=== PATIENT | female | born 1935 | race African-American/Black ===

== ENCOUNTER 2018-03-05 20:27 | Inpatient (IN) ==
[2018-03-05] MEDS ORDERED: SODIUM CHLORIDE 0.9% 500 ML IV STA (21:03)
[2018-03-05 22:44] LABS: Basophils % 0.3 % (0.0-0.8); Eosinophils # 0.1 10*3/uL (0.0-0.87); Eosinophils % 2.1 % (0.00-10.9); Hematocrit 47.1 VOL% (35.7-47.0); Immature Granulocytes % 0.3 %; Immature Granulocytes Absolute 0.02 #; Lymphocytes # 1.6 10*3/uL (1.4-4.0); Lymphocytes % 25.5 % (21.3-54.2); Mean Corpuscular HGB Conc 31.8 GM/DL (32-36); Mean Corpuscular Hemoglobin 30 PG (27-34); Mean Corpuscular Volume 92.5 FL (87-102); Mean Platelet Volume 12.8 FL (9.6-12.0); Monocytes # 0.6 10*3/uL (0.11-0.8); Monocytes % 9.5 % (1.7-12.7); Neutrophils # 3.8 10*3/uL (1.4-7.4); Neutrophils % 62.3 % (38.7-73.9); Platelet Count 176 T/CUMM (130-400); Red Blood Count 5.09 MC/CUMM (3.8-5.5); Red Cell Distribution Width 13.8 % (9.3-17.3); White Blood Count 6.1 T/CUMM (4-12)
[2018-03-05 22:58] LABS: Ammonia < 10 UMOL/L (11-32)
[2018-03-05 22:59] LABS: PT Patient Result 10.3 SECS
[2018-03-05 23:09] LABS: Lactic Acid 1.3 MMOL/L (0.4-2.0)
[2018-03-05 23:11] LABS: Alanine Aminotransferase 33 U/L (13-56); Albumin 3.6 G/DL (3.4-5.0); Alkaline Phosphatase 166 U/L (45-117); Aspartate Amino Transferase 17 U/L (0-37); Blood Urea Nitrogen 44 MG/DL (7-18); Calcium 9.4 MG/DL (8.5-10.1); Glucose 142 MG/DL (74-106); Osmolality,Calculated 295.1 MOS/KG (273-304); Sodium 142 MMOL/L (136-145); Total Protein 8.4 G/DL (6.4-8.3)
[2018-03-06 00:36] LABS: Sedimentation Rate-Westergren 34 MM/HR (0-30)
[2018-03-06 01:23] LABS: Apearance,Urine CLOUDY (Clear); Bilirubin,Urine Negative (Negative); Blood, Urine Large mg/dL (Negative); Glucose,Urine (UA) Negative (Negative); Ketones,Urine Negative (Negative); Nitrite,Urine Negative (Negative); Protein,Urine 30 MG/DL; RBC,Urine 27 /HPF (0-4); Urine Color Yellow (Yellow); Urine Specific Gravity 1.008 (1.001-1.035); Urine Urobilinogen < 2.0 EU/DL (0.2-1.0); WBC,Urine 498 /HPF (0-6)
[2018-03-06] MEDS ORDERED: cefTRIAXone 1,000 MG in SODIUM CHLORIDE 0.9% 100 ML IV STA (01:26)
[2018-03-06 01:27] LABS: Barbiturates Screen,Urine Negative (Negative); Benzodiazepines Screen,Urine Negative (Negative); Cannabinoid Screen,Urine Negative (Negative); Opiate Screen,Urine Negative (Negative); Phencyclidine Screen,Urine Negative (Negative)
[2018-03-06] MEDS ORDERED: ACETAMINOPHEN 325 MG TABLET PO PRN (02:53)
[2018-03-06] MEDS ORDERED: GLUCAGON 1 MG VIAL IM PRN (02:53)
[2018-03-06] MEDS ORDERED: ONDANSETRON 4 MG/2 ML VIAL IV PRN (02:53)
[2018-03-06] MEDS ORDERED: DEXTROSE 50% 25 GM/50 ML VIAL IV PRN (02:53)
[2018-03-06] MEDS ORDERED: DOCUSATE SODIUM 100 MG CAPSULE PO PRN (02:53)
[2018-03-06] MEDS ORDERED: BISACODYL 5 MG TABLET PO PRN (02:53)
[2018-03-06] MEDS: SODIUM CHLORIDE 0.9% 1,000 ML IV SCH ×2 (04:00→13:05)
[2018-03-06 06:12] LABS: Basophils % 0.4 % (0.0-0.8); Eosinophils # 0.2 10*3/uL (0.0-0.87); Eosinophils % 2.3 % (0.00-10.9); Hematocrit 42.6 VOL% (35.7-47.0); Hemoglobin 13.6 GM/DL (12.0-16.0); Immature Granulocytes % 0.4 %; Immature Granulocytes Absolute 0.03 #; Lymphocytes # 2.4 10*3/uL (1.4-4.0); Lymphocytes % 35.8 % (21.3-54.2); Mean Corpuscular HGB Conc 31.9 GM/DL (32-36); Mean Corpuscular Hemoglobin 30 PG (27-34); Mean Corpuscular Volume 92.6 FL (87-102); Mean Platelet Volume 12.7 FL (9.6-12.0); Monocytes # 1.1 10*3/uL (0.11-0.8); Monocytes % 15.7 % (1.7-12.7); Neutrophils # 3.1 10*3/uL (1.4-7.4); Neutrophils % 45.4 % (38.7-73.9); Platelet Count 162 T/CUMM (130-400); Red Cell Distribution Width 14.1 % (9.3-17.3); White Blood Count 6.8 T/CUMM (4-12)
[2018-03-06 06:32] LABS: Calcium 9.4 MG/DL (8.5-10.1); Osmolality,Calculated 296.8 MOS/KG (273-304)
[2018-03-06 06:36] LABS: Eosinophils 2 % (0-10); Hypochromasia 1+; Lymphocytes 37 % (20-55); Ovalocytes Slight; Platelet Estimate Adequate; Segmented Neutrophils 50 % (50-85); Total Cells Counted 100
[2018-03-06] MEDS: INSULIN LISPRO 100 UNIT/ML SUBCUT SCH ×4 (08:15→22:02)
[2018-03-06] MEDS: PANTOPRAZOLE 40 MG TABLET PO SCH (09:24)
[2018-03-06] MEDS: levETIRAcetam 500 MG TABLET PO SCH ×2 (09:24→21:07)
[2018-03-06] MEDS: LOSARTAN 50 MG TABLET PO SCH (09:24)
[2018-03-06] MEDS: CARVEDILOL 12.5 MG TABLET PO SCH ×2 (09:25→21:08)
[2018-03-06] MEDS: DILTIAZEM CD 240 MG CAPSULE PO SCH (09:25)
[2018-03-06] MEDS: ENOXAPARIN 30 MG/0.3 ML SYRINGE SUBCUT SCH (09:29)
[2018-03-06] MEDS ORDERED: TUBERCULIN SKIN TEST 0.1 ML SYRINGE INTRADERM ONE (15:45)
[2018-03-06] MEDS: DESITIN 4OZ/NYSTATIN 15 GRAM MIXTURE PASTE TOP SCH ×2 (16:30→21:10)
[2018-03-06] MEDS: cloNIDine 0.1 MG TABLET PO SCH (21:08)
[2018-03-06] MEDS: INSULIN GLARGINE 100 UNIT/ML SUBCUT SCH (22:02)
[2018-03-07] MEDS: SODIUM CHLORIDE 0.9% 1,000 ML IV SCH ×2 (03:45→16:05)
[2018-03-07] MEDS: cefTRIAXone 1,000 MG in SYRINGE 1 EACH IV SCH (05:58)
[2018-03-07] MEDS: INSULIN LISPRO 100 UNIT/ML SUBCUT SCH ×4 (08:06→21:20)
[2018-03-07] MEDS: ENOXAPARIN 30 MG/0.3 ML SYRINGE SUBCUT SCH (09:13)
[2018-03-07] MEDS: CARVEDILOL 12.5 MG TABLET PO SCH ×2 (09:14→20:44)
[2018-03-07] MEDS: levETIRAcetam 500 MG TABLET PO SCH ×2 (09:14→20:44)
[2018-03-07] MEDS: CHOLECALCIFEROL 1,000 UNIT TABLET PO SCH (09:14)
[2018-03-07] MEDS: LOSARTAN 50 MG TABLET PO SCH (09:14)
[2018-03-07] MEDS: TERBINAFINE 250 MG TABLET PO SCH (09:14)
[2018-03-07] MEDS: DESITIN 4OZ/NYSTATIN 15 GRAM MIXTURE PASTE TOP SCH (09:14)
[2018-03-07] MEDS: PANTOPRAZOLE 40 MG TABLET PO SCH (09:14)
[2018-03-07] MEDS: DILTIAZEM CD 240 MG CAPSULE PO SCH (09:14)
[2018-03-07] MEDS ORDERED: ERGOCALCIFEROL 50,000 UNIT CAPSULE PO SCH (09:30)
[2018-03-07] MEDS: cloNIDine 0.1 MG TABLET PO SCH (20:44)
[2018-03-07] MEDS: INSULIN GLARGINE 100 UNIT/ML SUBCUT SCH (21:19)
[2018-03-07] MEDS ORDERED: QUEtiapine 25 MG TABLET PO PRN (23:16)
[2018-03-08] MEDS ORDERED: HALOPERIDOL 5 MG/ML AMP IV ONE (02:29)
[2018-03-08] MEDS: DESITIN 4OZ/NYSTATIN 15 GRAM MIXTURE PASTE TOP SCH ×2 (03:19→08:08)
[2018-03-08] MEDS: SODIUM CHLORIDE 0.9% 1,000 ML IV SCH ×2 (06:16→14:58)
[2018-03-08] MEDS: levETIRAcetam 500 MG TABLET PO SCH (08:07)
[2018-03-08] MEDS: CARVEDILOL 12.5 MG TABLET PO SCH (08:07)
[2018-03-08] MEDS: DILTIAZEM CD 240 MG CAPSULE PO SCH (08:07)
[2018-03-08] MEDS: INSULIN LISPRO 100 UNIT/ML SUBCUT SCH ×3 (08:08→15:34)
[2018-03-08] MEDS: TERBINAFINE 250 MG TABLET PO SCH (08:08)
[2018-03-08] MEDS: CHOLECALCIFEROL 1,000 UNIT TABLET PO SCH (08:08)
[2018-03-08] MEDS: LOSARTAN 50 MG TABLET PO SCH (08:08)
[2018-03-08] MEDS: ENOXAPARIN 30 MG/0.3 ML SYRINGE SUBCUT SCH (08:08)
[2018-03-08] MEDS: PANTOPRAZOLE 40 MG TABLET PO SCH (08:08)
[2018-03-08] MEDS: cefTRIAXone 1,000 MG in SYRINGE 1 EACH IV SCH (08:54)
[2018-03-08] MEDS ORDERED: LOSARTAN 25 MG TABLET PO SCH (09:00)
[2018-03-08] MEDS ORDERED: ZIPRASIDONE 20 MG/1 ML VIAL IM PRN (13:22)
[2018-03-08] MEDS ORDERED: HALOPERIDOL 5 MG/ML AMP IM ONE (15:28)
[2018-03-08] MEDS ORDERED: LORazepam 2 MG/1 ML VIAL IM ONE (15:29)
[2018-03-08 16:21] VITALS: BP 163/85
[2018-03-08] MEDS ORDERED: QUEtiapine 25 MG TABLET PO SCH (18:00)
[2018-03-08] MEDS ORDERED: MEMANTINE 5 MG TABLET PO SCH (21:00)
== END 2018-03-08 18:43 | DRG 690 ==
LOC: EDUNIT# → EDBD → N.ED 20:27 → N.EDINP 03-06 02:53 → N.2W 03-06 09:38 → N.5E 03-06 13:24
PROVIDERS: ADMIT Hospitalist; ATTEND Hospitalist

== ENCOUNTER 2018-04-06 16:24 | Inpatient (IN) ==
[2018-04-06 17:19] LABS: Basophils % 0.2 % (0.0-0.8); Eosinophils % 0.2 % (0.00-10.9); Hematocrit 34.2 VOL% (35.7-47.0); Immature Granulocytes % 0.7 %; Lymphocytes # 1.4 10*3/uL (1.4-4.0); Lymphocytes % 10.2 % (21.3-54.2); Mean Corpuscular HGB Conc 32.2 GM/DL (32-36); Mean Corpuscular Hemoglobin 30 PG (27-34); Mean Corpuscular Volume 91.7 FL (87-102); Mean Platelet Volume 11.6 FL (9.6-12.0); Monocytes # 1.6 10*3/uL (0.11-0.8); Monocytes % 11.7 % (1.7-12.7); Neutrophils # 10.5 10*3/uL (1.4-7.4); Platelet Count 173 T/CUMM (130-400); Red Blood Count 3.73 MC/CUMM (3.8-5.5); Red Cell Distribution Width 14.4 % (9.3-17.3); White Blood Count 13.6 T/CUMM (4-12)
[2018-04-06 17:26] LABS: Apearance,Urine CLOUDY (Clear); Bacteria,Urine Many /HPF (Few); Bilirubin,Urine Negative (Negative); Blood, Urine Moderate mg/dL (Negative); Glucose,Urine (UA) Negative (Negative); Ketones,Urine Negative (Negative); Mucus,Urine Occasional /LPF (Occasional); Nitrite,Urine Negative (Negative); Protein,Urine 30 MG/DL; RBC,Urine 114 /HPF (0-4); Urine Color Yellow (Yellow); Urine Specific Gravity 1.013 (1.001-1.035); Urine Urobilinogen < 2.0 EU/DL (0.2-1.0); WBC,Urine 632 /HPF (0-6)
[2018-04-06 17:36] LABS: Calcium 9.1 MG/DL (8.5-10.1); Osmolality,Calculated 291.3 MOS/KG (273-304); Potassium 5.1 MMOL/L (3.5-5.1)
[2018-04-06 17:39] LABS: Lactic Acid 1.3 MMOL/L (0.4-2.0)
[2018-04-06 17:46] LABS: Ammonia < 10 UMOL/L (11-32)
[2018-04-06] MEDS ORDERED: SODIUM CHLORIDE 0.9% 1,000 ML IV STA (17:54)
[2018-04-06] MEDS ORDERED: PIPERACILLIN/TAZOBACTAM 3,375 MG in SODIUM CHLORIDE 0.9% 100 ML IV STA (17:55)
[2018-04-06] MEDS ORDERED: VANCOMYCIN INJ 1,500 MG in SODIUM CHLORIDE 0.9% 500 ML IV STA (17:55)
[2018-04-06] MEDS ORDERED: FLUCONAZOLE INJ 400 MG in PREMIX 1 EACH IV SCH (18:00)
[2018-04-06] MEDS ORDERED: ONDANSETRON 4 MG/2 ML VIAL IV PRN (18:14)
[2018-04-06] MEDS ORDERED: ALBUTEROL 2.5 MG/3 ML NEB RESP TX PRN (18:14)
[2018-04-06] MEDS ORDERED: DEXTROSE 50% 25 GM/50 ML VIAL IV PRN (18:21)
[2018-04-06] MEDS ORDERED: GLUCAGON 1 MG VIAL IM PRN (18:21)
[2018-04-06] MEDS ORDERED: NOREPINEPHRINE 8 MG in SODIUM CHLORIDE 0.9% 242 ML IV PRN (18:28)
[2018-04-06] MEDS ORDERED: NOREPINEPHRINE 8 MG in SODIUM CHLORIDE 0.9% 242 ML IV SCH (18:30)
[2018-04-06] MEDS: SODIUM CHLORIDE 0.9% 1,000 ML IV SCH (19:00)
[2018-04-06] MEDS: HEPARIN 5,000 UNIT/1 ML VIAL SUBCUT SCH (19:37)
[2018-04-06] MEDS: ALBUTEROL/IPRATROPIUM 3 ML NEB RESP TX SCH (19:44)
[2018-04-06] MEDS: PIPERACILLIN/TAZOBACTAM 3,375 MG in SODIUM CHLORIDE 0.9% 100 ML IV SCH (19:50)
[2018-04-06] MEDS: MORPHINE 4 MG/1 ML VIAL IV PRN (21:29)
[2018-04-06] MEDS ORDERED: QUEtiapine 25 MG TABLET PO SCH (22:00)
[2018-04-06] MEDS: LORazepam 2 MG/1 ML VIAL IV PRN (22:29)
[2018-04-06] MEDS: PANTOPRAZOLE 40 MG VIAL IV SCH (22:42)
[2018-04-07] MEDS: FLUCONAZOLE INJ 200 MG in PREMIX 1 EACH IV SCH (00:01)
[2018-04-07] MEDS: SODIUM CHLORIDE 0.9% 1,000 ML IV SCH ×6 (00:26→19:40)
[2018-04-07] MEDS: INSULIN REGULAR 100 UNIT/ML SUBCUT SCH ×4 (01:28→18:20)
[2018-04-07] MEDS: ALBUTEROL/IPRATROPIUM 3 ML NEB RESP TX SCH ×4 (01:33→19:45)
[2018-04-07] MEDS: HEPARIN 5,000 UNIT/1 ML VIAL SUBCUT SCH ×3 (03:37→18:21)
[2018-04-07 04:59] LABS: Basophils % 0.3 % (0.0-0.8); Eosinophils # 0.1 10*3/uL (0.0-0.87); Eosinophils % 0.7 % (0.00-10.9); Hematocrit 35.3 VOL% (35.7-47.0); Hemoglobin 10.8 GM/DL (12.0-16.0); Immature Granulocytes % 0.6 %; Immature Granulocytes Absolute 0.06 #; Lymphocytes # 1.4 10*3/uL (1.4-4.0); Lymphocytes % 13.6 % (21.3-54.2); Mean Corpuscular HGB Conc 30.6 GM/DL (32-36); Mean Corpuscular Hemoglobin 29 PG (27-34); Mean Corpuscular Volume 95.7 FL (87-102); Mean Platelet Volume 11.9 FL (9.6-12.0); Monocytes # 1.1 10*3/uL (0.11-0.8); Monocytes % 11.1 % (1.7-12.7); Neutrophils # 7.4 10*3/uL (1.4-7.4); Neutrophils % 73.7 % (38.7-73.9); Platelet Count 146 T/CUMM (130-400); Red Blood Count 3.69 MC/CUMM (3.8-5.5); Red Cell Distribution Width 14.5 % (9.3-17.3); White Blood Count 10.1 T/CUMM (4-12)
[2018-04-07] MEDS: PIPERACILLIN/TAZOBACTAM 3,375 MG in SODIUM CHLORIDE 0.9% 100 ML IV SCH ×3 (05:12→20:42)
[2018-04-07 05:18] LABS: Albumin 1.9 G/DL (3.4-5.0); Calcium 8.5 MG/DL (8.5-10.1); Osmolality,Calculated 292.1 MOS/KG (273-304); Potassium 4.9 MMOL/L (3.5-5.1); Total Protein 6.7 G/DL (6.4-8.3)
[2018-04-07] MEDS: INSULIN NPH 100 UNIT/ML SUBCUT SCH (18:20)
[2018-04-07] MEDS ORDERED: VANCOMYCIN INJ 1,750 MG in SODIUM CHLORIDE 0.9% 500 ML IV SCH (18:30)
[2018-04-07] MEDS: PANTOPRAZOLE 40 MG VIAL IV SCH (21:35)
[2018-04-07] MEDS: CARVEDILOL 12.5 MG TABLET PO SCH (21:35)
[2018-04-07] MEDS: LORazepam 2 MG/1 ML VIAL IV PRN (22:07)
[2018-04-08] MEDS: FLUCONAZOLE INJ 200 MG in PREMIX 1 EACH IV SCH ×2 (00:07→23:11)
[2018-04-08] MEDS: ALBUTEROL/IPRATROPIUM 3 ML NEB RESP TX SCH ×4 (01:41→19:42)
[2018-04-08] MEDS: INSULIN REGULAR 100 UNIT/ML SUBCUT SCH ×4 (02:15→17:54)
[2018-04-08] MEDS: SODIUM CHLORIDE 0.9% 1,000 ML IV SCH ×3 (02:26→18:15)
[2018-04-08] MEDS: HEPARIN 5,000 UNIT/1 ML VIAL SUBCUT SCH ×3 (02:35→18:15)
[2018-04-08 03:28] LABS: Basophils % 0.2 % (0.0-0.8); Eosinophils # 0.1 10*3/uL (0.0-0.87); Eosinophils % 1.4 % (0.00-10.9); Hematocrit 29.6 VOL% (35.7-47.0); Hemoglobin 9.1 GM/DL (12.0-16.0); Immature Granulocytes % 0.5 %; Immature Granulocytes Absolute 0.05 #; Lymphocytes # 0.8 10*3/uL (1.4-4.0); Lymphocytes % 8.9 % (21.3-54.2); Mean Corpuscular HGB Conc 30.7 GM/DL (32-36); Mean Corpuscular Hemoglobin 29 PG (27-34); Mean Corpuscular Volume 94.3 FL (87-102); Mean Platelet Volume 11.3 FL (9.6-12.0); Monocytes # 0.8 10*3/uL (0.11-0.8); Monocytes % 8.2 % (1.7-12.7); Neutrophils # 7.5 10*3/uL (1.4-7.4); Neutrophils % 80.8 % (38.7-73.9); Platelet Count 163 T/CUMM (130-400); Red Blood Count 3.14 MC/CUMM (3.8-5.5); Red Cell Distribution Width 14.5 % (9.3-17.3); White Blood Count 9.3 T/CUMM (4-12)
[2018-04-08 03:46] LABS: Albumin 1.5 G/DL (3.4-5.0); Bilirubin,Total 0.7 MG/DL (0.2-1.0); Calcium 8.1 MG/DL (8.5-10.1); Osmolality,Calculated 297.4 MOS/KG (273-304); Potassium 4.6 MMOL/L (3.5-5.1)
[2018-04-08] MEDS: PIPERACILLIN/TAZOBACTAM 3,375 MG in SODIUM CHLORIDE 0.9% 100 ML IV SCH ×3 (05:12→22:16)
[2018-04-08] MEDS: INSULIN NPH 100 UNIT/ML SUBCUT SCH ×2 (08:52→16:39)
[2018-04-08] MEDS: CARVEDILOL 12.5 MG TABLET PO SCH ×2 (09:17→22:13)
[2018-04-08] MEDS: LORazepam 2 MG/1 ML VIAL IV PRN (11:26)
[2018-04-08] MEDS: CLOTRIMAZOLE 1% CREAM 15 GM TUBE TOP SCH ×2 (13:53→22:13)
[2018-04-08] MEDS: CIPROFLOXACIN INJ 400 MG in PREMIX 1 EACH IV SCH (15:34)
[2018-04-08] MEDS: PANTOPRAZOLE 40 MG VIAL IV SCH (22:13)
[2018-04-09] MEDS: INSULIN REGULAR 100 UNIT/ML SUBCUT SCH ×4 (00:16→18:32)
[2018-04-09] MEDS: ALBUTEROL/IPRATROPIUM 3 ML NEB RESP TX SCH ×4 (00:46→19:10)
[2018-04-09] MEDS: HEPARIN 5,000 UNIT/1 ML VIAL SUBCUT SCH ×3 (02:13→18:32)
[2018-04-09] MEDS: SODIUM CHLORIDE 0.9% 1,000 ML IV SCH (02:16)
[2018-04-09] MEDS: CIPROFLOXACIN INJ 400 MG in PREMIX 1 EACH IV SCH ×2 (03:33→15:28)
[2018-04-09 04:16] LABS: Basophils % 0.3 % (0.0-0.8); Eosinophils # 0.2 10*3/uL (0.0-0.87); Eosinophils % 1.9 % (0.00-10.9); Hematocrit 28.2 VOL% (35.7-47.0); Hemoglobin 8.6 GM/DL (12.0-16.0); Immature Granulocytes % 0.5 %; Immature Granulocytes Absolute 0.04 #; Lymphocytes # 0.9 10*3/uL (1.4-4.0); Mean Corpuscular HGB Conc 30.5 GM/DL (32-36); Mean Corpuscular Hemoglobin 29 PG (27-34); Mean Corpuscular Volume 95.3 FL (87-102); Mean Platelet Volume 11.2 FL (9.6-12.0); Monocytes # 0.8 10*3/uL (0.11-0.8); Monocytes % 9.6 % (1.7-12.7); Neutrophils # 6.1 10*3/uL (1.4-7.4); Neutrophils % 76.7 % (38.7-73.9); Platelet Count 168 T/CUMM (130-400); Red Blood Count 2.96 MC/CUMM (3.8-5.5); Red Cell Distribution Width 14.5 % (9.3-17.3); White Blood Count 7.9 T/CUMM (4-12)
[2018-04-09 04:54] LABS: Albumin 1.4 G/DL (3.4-5.0); Calcium 8.3 MG/DL (8.5-10.1); Osmolality,Calculated 300.1 MOS/KG (273-304); Potassium 4.4 MMOL/L (3.5-5.1); Total Protein 5.8 G/DL (6.4-8.3)
[2018-04-09] MEDS: PIPERACILLIN/TAZOBACTAM 3,375 MG in SODIUM CHLORIDE 0.9% 100 ML IV SCH ×3 (06:23→22:45)
[2018-04-09] MEDS: INSULIN NPH 100 UNIT/ML SUBCUT SCH ×2 (09:10→17:16)
[2018-04-09] MEDS: CARVEDILOL 12.5 MG TABLET PO SCH ×2 (09:18→21:42)
[2018-04-09] MEDS: CLOTRIMAZOLE 1% CREAM 15 GM TUBE TOP SCH ×2 (09:21→21:43)
[2018-04-09] MEDS: SODIUM CHLORIDE 0.45% 1,000 ML IV SCH ×2 (09:22→19:27)
[2018-04-09] MEDS: MORPHINE 4 MG/1 ML VIAL IV PRN (15:34)
[2018-04-09] MEDS: QUEtiapine 25 MG TABLET PO SCH (18:32)
[2018-04-09] MEDS: MEMANTINE 5 MG TABLET PO SCH (21:42)
[2018-04-09] MEDS: PANTOPRAZOLE 40 MG VIAL IV SCH (21:43)
[2018-04-09] MEDS: FLUCONAZOLE INJ 200 MG in PREMIX 1 EACH IV SCH (22:45)
[2018-04-10] MEDS: INSULIN REGULAR 100 UNIT/ML SUBCUT SCH ×4 (00:30→18:09)
[2018-04-10] MEDS: ALBUTEROL/IPRATROPIUM 3 ML NEB RESP TX SCH ×4 (01:29→19:51)
[2018-04-10] MEDS: HEPARIN 5,000 UNIT/1 ML VIAL SUBCUT SCH ×3 (02:42→18:00)
[2018-04-10] MEDS: CIPROFLOXACIN INJ 400 MG in PREMIX 1 EACH IV SCH ×2 (02:42→14:30)
[2018-04-10 05:36] LABS: Basophils % 0.4 % (0.0-0.8); Eosinophils # 0.3 10*3/uL (0.0-0.87); Hematocrit 27.9 VOL% (35.7-47.0); Hemoglobin 8.7 GM/DL (12.0-16.0); Immature Granulocytes % 1.8 %; Immature Granulocytes Absolute 0.13 #; Lymphocytes % 13.4 % (21.3-54.2); Mean Corpuscular HGB Conc 31.2 GM/DL (32-36); Mean Corpuscular Hemoglobin 29 PG (27-34); Mean Corpuscular Volume 94.3 FL (87-102); Mean Platelet Volume 10.8 FL (9.6-12.0); Monocytes # 0.8 10*3/uL (0.11-0.8); Monocytes % 10.4 % (1.7-12.7); Neutrophils # 5.2 10*3/uL (1.4-7.4); Platelet Count 177 T/CUMM (130-400); Red Blood Count 2.96 MC/CUMM (3.8-5.5); Red Cell Distribution Width 14.4 % (9.3-17.3); White Blood Count 7.4 T/CUMM (4-12)
[2018-04-10] MEDS: SODIUM CHLORIDE 0.45% 1,000 ML IV SCH ×2 (05:40→15:41)
[2018-04-10 06:05] LABS: Albumin 1.3 G/DL (3.4-5.0); Bilirubin,Total 0.8 MG/DL (0.2-1.0); Calcium 8.3 MG/DL (8.5-10.1); Osmolality,Calculated 296.6 MOS/KG (273-304); Potassium 4.5 MMOL/L (3.5-5.1)
[2018-04-10] MEDS: PIPERACILLIN/TAZOBACTAM 3,375 MG in SODIUM CHLORIDE 0.9% 100 ML IV SCH ×3 (06:07→22:25)
[2018-04-10] MEDS: INSULIN NPH 100 UNIT/ML SUBCUT SCH ×2 (10:09→17:56)
[2018-04-10] MEDS: CARVEDILOL 12.5 MG TABLET PO SCH ×2 (10:10→20:51)
[2018-04-10] MEDS: MEMANTINE 5 MG TABLET PO SCH ×2 (10:10→20:51)
[2018-04-10] MEDS: CLOTRIMAZOLE 1% CREAM 15 GM TUBE TOP SCH ×2 (10:11→20:51)
[2018-04-10] MEDS: QUEtiapine 25 MG TABLET PO SCH (17:58)
[2018-04-10] MEDS: PANTOPRAZOLE 40 MG VIAL IV SCH (20:51)
[2018-04-10] MEDS: LORazepam 2 MG/1 ML VIAL IV PRN (20:52)
[2018-04-10] MEDS: FLUCONAZOLE INJ 200 MG in PREMIX 1 EACH IV SCH (23:00)
[2018-04-11] MEDS: INSULIN REGULAR 100 UNIT/ML SUBCUT SCH ×3 (01:10→12:00)
[2018-04-11] MEDS: ALBUTEROL/IPRATROPIUM 3 ML NEB RESP TX SCH ×3 (02:00→12:30)
[2018-04-11] MEDS: SODIUM CHLORIDE 0.45% 1,000 ML IV SCH ×2 (02:29→12:28)
[2018-04-11] MEDS: HEPARIN 5,000 UNIT/1 ML VIAL SUBCUT SCH ×2 (02:30→10:14)
[2018-04-11 02:52] LABS: Basophils % 0.3 % (0.0-0.8); Eosinophils # 0.3 10*3/uL (0.0-0.87); Eosinophils % 4.8 % (0.00-10.9); Hematocrit 26.4 VOL% (35.7-47.0); Hemoglobin 8.4 GM/DL (12.0-16.0); Immature Granulocytes % 0.8 %; Immature Granulocytes Absolute 0.05 #; Lymphocytes # 0.9 10*3/uL (1.4-4.0); Lymphocytes % 14.1 % (21.3-54.2); Mean Corpuscular HGB Conc 31.8 GM/DL (32-36); Mean Corpuscular Hemoglobin 30 PG (27-34); Mean Platelet Volume 10.8 FL (9.6-12.0); Monocytes # 0.6 10*3/uL (0.11-0.8); Monocytes % 9.3 % (1.7-12.7); Neutrophils # 4.6 10*3/uL (1.4-7.4); Neutrophils % 70.7 % (38.7-73.9); Platelet Count 179 T/CUMM (130-400); Red Blood Count 2.81 MC/CUMM (3.8-5.5); Red Cell Distribution Width 14.2 % (9.3-17.3); White Blood Count 6.5 T/CUMM (4-12)
[2018-04-11 03:05] LABS: Calcium 8.3 MG/DL (8.5-10.1); Potassium 4.4 MMOL/L (3.5-5.1)
[2018-04-11] MEDS: CIPROFLOXACIN INJ 400 MG in PREMIX 1 EACH IV SCH (04:12)
[2018-04-11] MEDS: PIPERACILLIN/TAZOBACTAM 3,375 MG in SODIUM CHLORIDE 0.9% 100 ML IV SCH (05:44)
[2018-04-11] MEDS ORDERED: MAGNESIUM SULF RIDER 4 GM in PREMIX 1 EACH IV ONE (08:00)
[2018-04-11] MEDS: INSULIN NPH 100 UNIT/ML SUBCUT SCH (08:45)
[2018-04-11] MEDS: CLOTRIMAZOLE 1% CREAM 15 GM TUBE TOP SCH (14:00)
[2018-04-11] MEDS: CARVEDILOL 12.5 MG TABLET PO SCH (17:17)
[2018-04-11] MEDS: MEMANTINE 5 MG TABLET PO SCH (17:18)
[2018-04-11] MEDS: QUEtiapine 25 MG TABLET PO SCH (17:19)
[2018-04-11 19:54] VITALS: BP 181/89
== END 2018-04-11 18:15 | DRG 871 ==
LOC: EDUNIT# → EDBD → N.ED 16:24 → N.EDINP 18:14 → SUATTDRO 18:14 → N.CC 18:31
PROVIDERS: ADMIT Internal Medicine Geriatric Medicine; ATTEND Internal Medicine